=== PATIENT | female | born 1970 | race Caucasian/White ===

== ENCOUNTER 2018-06-11 11:11 | Inpatient (IN) | payer BC ==
[2018-06-11 12:10] LABS: Urine Blood 1+ (NEG); Urine Glucose NEGATIVE (NEG); Urine Protein NEGATIVE (NEG); Urine Specific Gravity 1.015 (1.005-1.030)
[2018-06-11 12:18] LABS: Absolute Lymphocytes (CBC) 2.3 K/uL (0.7-4.9); Absolute Monocytes 1.6 K/uL (0.1-1.3); Absolute Neutrophil 11.5 K/uL (1.8-8.0); Basophils % 0.4 % (0-1.3); Eosinophils % 0.8 % (0-4.4); Hematocrit 45.6 % (36.0-45.0); MPV 8.5 fL (7.6-11.3); Monocytes % 10.2 % (3.3-12.3); RBC Red Blood Cell Count 4.93 M/uL (3.86-4.86)
[2018-06-11 12:30] LABS: ALT/SGPT 24 U/L (12-78); AST/SGOT 11 U/L (15-37); Albumin 3.2 g/dL (3.4-5.0); Alkaline Phosphatase 63 U/L (45-117); BUN Blood Urea Nitrogen 9 mg/dL (7-18); Bicarbonate 27 mmol/L (21-32); Bilirubin Direct 0.1 mg/dL (0-0.2); Bilirubin Total 0.5 mg/dL (0.2-1.0); Glucose Level 95 mg/dL (74-106); Lipase 120 U/L (73-393); Potassium 3.8 mmol/L (3.5-5.1); Protein, Total 7.3 g/dL (6.4-8.2); Sodium Level 139 mmol/L (136-145)
[2018-06-11 12:37] LABS: Urine Bacteria <20 /HPF (<20); Urine Culture Reflex Order NOT NEEDED; Urine Mucus 1+ /HPF (NONE SEEN)
[2018-06-11] MEDS ORDERED: NA CHLORIDE 0.9% 1,000 ML ONE (13:06)
[2018-06-11] MEDS ORDERED: KETOROLAC 30 MG/ML INJ ONE (13:06)
--- NOTE | 2018-06-11 13:24 | RAD REPORT ---
EXAM DESCRIPTION: CT - Abdomen Pelvis W Contrast - 06/11/2018 12:37 pm CLINICAL HISTORY: Abdominal pain/left lower quadrant pain COMPARISON: none. TECHNIQUE: Computed axial tomography of the abdomen pelvis was obtained. 100 cc Isovue-300 was admin istered intravenously. Oral contrast was not requested which limits evaluation of bowel. All CT scans are performed using dose optimization technique as appropriate and may include automated exposure control or mA/KV adjustment according to patient size. FINDINGS: Mild fatty liver Spleen, pancreas, adrenal and right kidney appear unremarkable. 2 millimeter nonobstructing left michael l calculus The appendix is normal Diverticula stem from the colon. The wall of portions of descending and proximal sigmoid colon is thi ckened with stranding in the adjacent fat and ill-defined fluid within the left pericolic gutter. An abscess is not seen. Free air is not noted Small amount of ascites. 2 centimeter right ovarian cyst with a smaller right ovarian follicle. . IMPRESSION: These findings likely indicate moderate diverticulitis involving the descending and sigm oid colon.
[2018-06-11] MEDS ORDERED: CIPROFLOXACIN 400mg IV 400 MG/200 ML BAG IV ONE (13:49)
[2018-06-11] MEDS ORDERED: METRONIDAZOLE 500mg IVPB 500 MG/100 ML BAG IV ONE (13:50)
--- NOTE | 2018-06-11 13:56 | EDPHYS ---
Physician Documentation [facility] Name: Lorie Bonner Age: 47 yrs Sex: Female : 1970 Arrival Date: 06/11/2018 Time: 11:17 Bed 5 Private MD: ED Physician Shahram Martinez HPI: 06/11 12:00 This 47 yrs old Female presents to ER via Ambulatory with complaints of pm1 Pelvic Pain, Flank Pain. 12:00 The patient presents with abdominal pain in the left lower quadrant. pm1 12:00 Onset: The symptoms/episode began/occurred last night. The symptoms do not radiate. pm1 Associated signs and symptoms: Pertinent positives: Left flank pain, Pertinent negatives: blood in stools, chest pain, constipation, diarrhea, dysuria, fever, headache, nausea, shortness of breath, vomiting. The symptoms are described as achy. Modifying factors: The symptoms are alleviated by nothing, the symptoms are aggravated by nothing. Severity of pain: in the emergency department the pain is actually worse. The patient has not experienced similar symptoms in the past. 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 - Social history:: Smoking status: Patient/guardian denies using tobacco, Patient/guardian denies using alcohol. - Ebola Screening: : Patient negative for fever greater than or equal to 101.5 degrees Fahrenheit, and additional compatible Ebola Virus Disease symptoms Patient denies exposure to infectious person Patient denies travel to an Ebola-affected area in the 21 days before illness onset. ROS: 12:00 Constitutional: Negative for fever, chills, and weight loss, Eyes: Negative for injury, pm1 pain, redness, and discharge, ENT: Negative for injury, pain, and discharge, Neck: Negative for injury, pain, and swelling, Cardiovascular: Negative for chest pain, palpitations, and edema, Respiratory: Negative for shortness of breath, cough, wheezing, and pleuritic chest pain. 12:00 Back: Negative for injury and pain, : Negative for injury, bleeding, discharge, and swelling, MS/Extremity: Negative for injury and deformity, Skin: Negative for injury, rash, and discoloration, Neuro: Negative for headache, weakness, numbness, tingling, and seizure. 12:00 Abdomen/GI: Positive for abdominal pain, Negative for nausea, vomiting, and diarrhea. Exam: 12:00 Constitutional: This is a well developed, well nourished patient who is awake, alert, pm1 and in no acute distress. Head/Face: Normocephalic, atraumatic. Eyes: Pupils equal round and reactive to light, extra-ocular motions intact. Lids and lashes normal. Conjunctiva and sclera are non-icteric and not injected. Cornea within normal limits. Periorbital areas with no swelling, redness, or edema. ENT: Nares patent. No nasal discharge, no septal abnormalities noted. Tympanic membranes are normal and external auditory canals are clear. Oropharynx with no redness, swelling, or masses, exudates, or evidence of obstruction, uvula midline. Mucous membranes moist. Neck: Trachea midline, no thyromegaly or masses palpated, and no cervical lymphadenopathy. Supple, full range of motion without nuchal rigidity, or vertebral point tenderness. No Meningismus. Chest/axilla: Normal chest wall appearance and motion. Nontender with no deformity. No lesions are appreciated. Cardiovascular: Regular rate and rhythm with a normal S1 and S2. No gallops, murmurs, or rubs. Normal PMI, no JVD. No pulse deficits. Respiratory: Lungs have equal breath sounds bilaterally, clear to auscultation and percussion. No rales, rhonchi or wheezes noted. No increased work of breathing, no retractions or nasal flaring. 12:00 Back: No spinal tenderness. No costovertebral tenderness. Full range of motion. Skin: Warm, dry with normal turgor. Normal color with no rashes, no lesions, and no evidence of cellulitis. MS/ Extremity: Pulses equal, no cyanosis. Neurovascular intact. Full, normal range of motion. 12:00 Abdomen/GI: Inspection: abdomen appears normal, Bowel sounds: normal, Palpation: soft, mild abdominal tenderness, in the left lower quadrant, mass, is not appreciated, rebound tenderness, is not appreciated. 12:00 Neuro: Orientation: is normal, Motor: is normal, moves all fours. Vital Signs: 11:32 BP 156 / 98; Pulse 95; Resp 18; Temp 98.6(O); Pulse Ox 100% on R/A; Weight 99.34 kg; hj Height 5 ft. 6 in. (167.64 cm); Pain 5/10; 13:30 BP 155 / 90; Pulse 90; Resp 18; Pulse Ox 100% on R/A; hj 14:57 BP 148 / 89; Pulse 89; Resp 18; Pulse Ox 100% on R/A; hj 11:32 Body Mass Index 35.35 (99.34 kg, 167.64 cm) hj MDM: 11:20 Patient medically screened. pm1 13:39 Data reviewed: vital signs. Data interpreted: Pulse oximetry: on room air is 100 %. pm1 Interpretation: normal. Counseling: I had a detailed discussion with the patient and/or guardian regarding: the historical points, exam findings, and any diagnostic results supporting the discharge/admit diagnosis, lab results, radiology results, the need for further work-up and treatment in the hospital. 13:39 Physician consultation: Chin Perez MD was called at 13:39, was contacted at 13:39, pm1 regarding admission, patient's condition, and will see patient He will consult with GI or general surgery if needed. 06/11 11:48 Order name: Urine Dipstick--Ancillary (enter results); Complete Time: 12:21 ag 06/11 11:49 Order name: Basic Metabolic Panel pm1 06/11 11:49 Order name: CBC with Diff pm1 06/11 11:49 Order name: Creatinine for Radiology; Complete Time: 12:39 pm1 06/11 11:49 Order name: Hepatic Function; Complete Time: 12:39 pm1 06/11 11:49 Order name: Lipase; Complete Time: 12:39 pm1 06/11 11:49 Order name: CT Abd/Pelvis - W/Contrast: IV contrast only; Complete Time: 13:28 pm1 06/11 11:49 Order name: Urine Microscopic Only; Complete Time: 12:39 pm1 06/11 11:49 Order name: Basic Metabolic Panel; Complete Time: 12:39 EDMS 06/11 11:49 Order name: CBC with Automated Diff; Complete Time: 12:22 EDMS 06/11 11:49 Order name: IV Saline Lock; Complete Time: 12:03 pm1 06/11 11:49 Order name: Labs collected and sent; Complete Time: 12:03 pm1 Administered Medications: 12:45 Drug: TORadol 30 mg Route: IVP; Site: right antecubital; hj 13:34 Follow up: Response: No adverse reaction; Pain is decreased hj 12:46 Drug: NS 0.9% 1000 ml Route: IV; Rate: 1000 ml; Site: right antecubital; hj 14:10 Follow up: IV Status: Completed infusion hj 13:37 Drug: Flagyl 500 mg Volume: 100 ml; Route: IVPB; Rate: 200 ml/hr; Infused Over: 30 hj mins; Site: right antecubital; 14:11 Follow up: IV Status: Completed infusion hj 14:09 Drug: Cipro 400 mg Volume: 200 ml; Route: IVPB; Infused Over: 60 mins; Site: right hj antecubital; 14:11 Follow up: IV Status: Infusion continued hj Disposition: 06/11/18 13:56 Hospitalization ordered by Chin Perez for Inpatient Admission. Preliminary diagnosis is Diverticulitis of large intestine without perforation or abscess without bleeding. - Bed requested for Telemetry/MedSurg (Inpatient). - Status is Inpatient Admission. hj - Condition is Stable. - Problem is new. - Symptoms have improved. UTI on Admission? No Addendum: 06/15/2018 07:54 Co-signature as Attending Physician, Shahram Martinez MD I agree with the assessment and c thomson plan of care. Signatures: Dispatcher [employer] EDUT Shahram Martinez MD MD cha Gallardo, Ana ag Joaquin, Henry, RN RN Iftikhar Caballero NP SPORTS INTERN pm1 Corrections: (The following items were deleted from the chart) 06/11 14:32 13:56 Hospitalization Ordered by Chin Perez MD for Inpatient Admission. Preliminary ag diagnosis is Diverticulitis of large intestine without perforation or abscess without bleeding. Bed requested for Telemetry/MedSurg (Inpatient). Status is Inpatient Admission. Condition is Stable. Problem is new. Symptoms have improved. UTI on Admission? No. pm1 15:53 14:32 06/11/2018 13:56 Hospitalization Ordered by Chin Perez MD for Inpatient hj Admission. Preliminary diagnosis is Diverticulitis of large intestine without perforation or abscess without bleeding. Bed requested for Telemetry/MedSurg (Inpatient). Status is Inpatient Admission. Condition is Stable. Problem is new. Symptoms have improved. UTI on Admission? No. ag
--- NOTE | 2018-06-11 13:56 | ER ---
Nurse's Notes [facility] Name: Lorie Bonner Age: 47 yrs Sex: Female : 1970 Arrival Date: 06/11/2018 Time: 11:17 Bed 5 Private MD: Diagnosis: Diverticulitis of large intestine without perforation or abscess without bleeding Presentation: 06/11 11:28 Presenting complaint: Patient states: last night around 9:30, i felt sudden pain on my hj L lower abd near the groin area that moves to the L flank area; denies N/V; denies fever, reports chills;. Transition of care: patient was not received from another setting of care. Onset of symptoms was June 11, 2018. Risk Assessment: Do you want to hurt yourself or someone else? Patient reports no desire to harm self or others. Initial Sepsis Screen: Does the patient meet any 2 criteria? Yes Does the patient have a suspected source of infection? Yes: Dysuria/Frequency/Urgency/UTI. Care prior to arrival: None. 11:28 Method Of Arrival: Ambulatory 11:28 Acuity: JARRETT 3 hj Triage Assessment: 11:31 General: Appears in no apparent distress. uncomfortable, Behavior is calm, cooperative, hj appropriate for age. Pain: Complains of pain in abdomen, L flank. 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 - Social history:: Smoking status: Patient/guardian denies using tobacco, Patient/guardian denies using alcohol. - Ebola Screening: : Patient negative for fever greater than or equal to 101.5 degrees Fahrenheit, and additional compatible Ebola Virus Disease symptoms Patient denies exposure to infectious person Patient denies travel to an Ebola-affected area in the 21 days before illness onset. Screenin:31 Abuse screen: Denies threats or abuse. Denies injuries from another. Nutritional hj screening: No deficits noted. Tuberculosis screening: No symptoms or risk factors identified. Fall Risk None identified. Assessment: 11:34 General: Appears in no apparent distress. uncomfortable, Behavior is calm, cooperative, hj appropriate for age. Pain: Complains of pain in abdomen. Neuro: Level of Consciousness is awake, alert, obeys commands, Oriented to person, place, time, situation, Appropriate for age. Cardiovascular: Denies chest pain, Capillary refill < 3 seconds Patient's skin is warm and dry. Respiratory: Airway is patent Respiratory effort is even, unlabored, Respiratory pattern is regular, symmetrical. GI: Reports lower abdominal pain. : No signs and/or symptoms were reported regarding the genitourinary system. EENT: No signs and/or symptoms were reported regarding the EENT system. Derm: No signs and/or symptoms reported regarding the dermatologic system. Musculoskeletal: No signs and/or symptoms reported regarding the musculoskeletal system. 12:30 Reassessment: Patient and/or family updated on plan of care and expected duration. Pain hj level reassessed. Patient is alert, oriented x 3, equal unlabored respirations, skin warm/dry/pink. awaiting results and POC;. 13:30 Reassessment: Patient and/or family updated on plan of care and expected duration. Pain hj level reassessed. Patient is alert, oriented x 3, equal unlabored respirations, skin warm/dry/pink. Patient states feeling better. Patient states symptoms have improved. 14:57 Reassessment: for admit room 215; floor nurse requests to call back in 10 mins for hj report;. Vital Signs: 11:32 BP 156 / 98; Pulse 95; Resp 18; Temp 98.6(O); Pulse Ox 100% on R/A; Weight 99.34 kg; hj Height 5 ft. 6 in. (167.64 cm); Pain 5/10; 13:30 BP 155 / 90; Pulse 90; Resp 18; Pulse Ox 100% on R/A; hj 14:57 BP 148 / 89; Pulse 89; Resp 18; Pulse Ox 100% on R/A; hj 11:32 Body Mass Index 35.35 (99.34 kg, 167.64 cm) ED Course: 11:17 Patient arrived in ED. mr 11:20 Iftikhar Patel NP is PHCP. pm1 11:20 Shahram Martinez MD is Attending Physician. pm1 11:21 Ruben Burns RN is Primary Nurse. hj 11:30 Triage completed. hj 11:31 Arm band placed on right wrist. hj 11:32 Patient has correct armband on for positive identification. Placed in gown. Bed in low hj position. Call light in reach. Side rails up X 1. 11:33 Urine collected: clean catch specimen, clear. hj 11:45 Initial lab(s) drawn, by me, sent to lab. Inserted saline lock: 20 gauge in right hj antecubital area, using aseptic technique. Blood collected. 12:36 CT completed. Patient moved to CT via wheelchair. Patient moved back from CT. kw1 12:37 CT Abd/Pelvis - W/Contrast: IV contrast only In Process Unspecified. EDMS 13:41 Chin Perez MD is Hospitalizing Provider. pm1 15:51 No provider procedures requiring assistance completed. Patient admitted, IV remains in hj place. intact. Administered Medications: 12:45 Drug: TORadol 30 mg Route: IVP; Site: right antecubital; hj 13:34 Follow up: Response: No adverse reaction; Pain is decreased hj 12:46 Drug: NS 0.9% 1000 ml Route: IV; Rate: 1000 ml; Site: right antecubital; hj 14:10 Follow up: IV Status: Completed infusion hj 13:37 Drug: Flagyl 500 mg Volume: 100 ml; Route: IVPB; Rate: 200 ml/hr; Infused Over: 30 hj mins; Site: right antecubital; 14:11 Follow up: IV Status: Completed infusion hj 14:09 Drug: Cipro 400 mg Volume: 200 ml; Route: IVPB; Infused Over: 60 mins; Site: right hj antecubital; 14:11 Follow up: IV Status: Infusion continued hj Outcome: 13:56 Decision to Hospitalize by Provider. pm1 15:52 Admitted to Med/surg accompanied by tech, via wheelchair, room 215, with chart, Report hj called to VALERIE Jones 15:52 Condition: stable 15:52 Instructed on the need for admit, Demonstrated understanding of instructions. 15:53 Patient left the ED. hj Signatures: Dispatcher [employer] EDIN Dafne Bradley Henry, RN RN hj Iftikhar Patel, BEVEL OPERATOR BEVEL OPERATOR pm1 Sakina aCmara kw1
[2018-06-11] MEDS: D5 0.45 NS 1,000 ML IV SCH ×2 (15:19→21:26)
[2018-06-11] MEDS: METRONIDAZOLE 500mg IVPB 500 MG/100 ML BAG IV SCH (16:12)
[2018-06-11] MEDS ORDERED: INFLUENZA VACCINE (for 3y+) 0.5 ML DOSE IMVAC ONE (17:00)
[2018-06-11] MEDS: MORPHINE 4 MG/ML SYR IV PRN (18:23)
[2018-06-11] MEDS: ONDANSETRON 4 MG/2 ML VIAL IV PRN (18:24)
[2018-06-11] MEDS: CIPROFLOXACIN 400mg IV 400 MG/200 ML BAG IV SCH (21:25)
[2018-06-12] MEDS: ONDANSETRON 4 MG/2 ML VIAL IV PRN ×6 (00:14→22:55)
[2018-06-12] MEDS: MORPHINE 4 MG/ML SYR IV PRN ×6 (00:16→22:56)
[2018-06-12] MEDS: METRONIDAZOLE 500mg IVPB 500 MG/100 ML BAG IV SCH ×3 (00:21→16:51)
[2018-06-12 05:14] LABS: Absolute Lymphocytes (CBC) 2.1 K/uL (0.7-4.9); Absolute Monocytes 1.8 K/uL (0.1-1.3); Absolute Neutrophil 12.2 K/uL (1.8-8.0); Basophils % 0.4 % (0-1.3); Eosinophils % 0.6 % (0-4.4); Hematocrit 40.5 % (36.0-45.0); Lymphocytes % 12.9 % (15.3-44.8); MPV 7.8 fL (7.6-11.3); Monocytes % 11.3 % (3.3-12.3); RBC Red Blood Cell Count 4.33 M/uL (3.86-4.86)
[2018-06-12 05:22] LABS: ALT/SGPT 16 U/L (12-78); AST/SGOT 6 U/L (15-37); Albumin 2.5 g/dL (3.4-5.0); Alkaline Phosphatase 48 U/L (45-117); BUN Blood Urea Nitrogen 5 mg/dL (7-18); Bicarbonate 26 mmol/L (21-32); Bilirubin Direct 0.2 mg/dL (0-0.2); Bilirubin Total 0.5 mg/dL (0.2-1.0); Glucose Level 125 mg/dL (74-106); Lipase 91 U/L (73-393); Potassium 3.3 mmol/L (3.5-5.1); Sodium Level 139 mmol/L (136-145)
[2018-06-12] MEDS: CIPROFLOXACIN 400mg IV 400 MG/200 ML BAG IV SCH ×2 (09:48→21:21)
[2018-06-12] MEDS: D5 0.45 NS 1,000 ML IV SCH ×4 (09:52→23:19)
[2018-06-12] MEDS: ACETAMINOPHEN 500 MG TAB PO PRN (11:57)
--- NOTE | 2018-06-12 17:46 | HP ---
Date of Admission: 06/11/2018 Entrance Complaint: Abdominal pain. History Of Present Illness: The patient stated she noticed some lower, mid, and left abdominal pain 24 to 36 hours before presenting to the emergency room, became increasingly more severe, associated w ith nausea. No bowel movement change. However, the pain became severe enough. She felt something n ot right. In fact at that time CT scan did reveal moderate significant diverticulitis. She was admi tted. Patient states she has not had any GI problems in the past. A number of years ago she had some pelvic and lower abdominal pain prior to the diagnosis of endometriosis. 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 Since then, she has been relatively free o f GI problems. However, she does state she has a fair amount of alcohol on a regular basis. No marilee anh. Some caffeine. A few days prior to this she had an excessive amount associated with some unus ual foods for her. She also has been on a low carb diet. Some weight loss prior to this onset. Past History: As above. Endometriosis. Medications: On no medications for GI problems. Social History: As above. Family History: Noncontributory. Physical Examination: General: Patient is a moderately obese middle-aged female, in mild distress with stable vital signs. Head/Neck: Normocephalic. Pupils are equal and reactive to light and accommodation. Fundi negative . Trachea midline. Thyroid not palpable. ENT: Negative. Chest: Clear to P and A. Cardiovascular: PMI in midclavicular line. Heart sounds normal. Peripheral pulses present and equa l bilaterally. Abdomen: Tenderness in the left lower abdomen. Borderline rebound. No organomegaly. Bowel sounds present. Extremities: Slightly dehydrated. Good tone and movement bilaterally. Reflexes physiologic. Rectal/pelvic: Deferred. Impression: Acute diverticulitis. Plan: Patient will be admitted and placed on IV fluids, IV antibiotics, Flagyl, and Cipro. Dependin g on her progress, further testing and antibiotics may be added to the regimen. Her white count was elevated. Her white blood count was within normal limits. This will be followed as well. HR/MODL Voice ID: [id number]
--- NOTE | 2018-06-12 17:52 | PN ---
Date of Progress Note: 06/12/2018 The patient states she feels somewhat better. Still has abdominal pain. Asking for analgesics on a regular basis. Some nausea associated with morphine, otherwise not. Has asked for some ice chips. She states this is not discomfort is concerned. Physical exam still reveals the left lowe r quadrant tenderness. CAT scan did not reveal any abscess or free fluid; however, we will repeat th e KUB in the morning. Her vital signs are stable. Her white count is still elevated. HR/MODL Voice ID: [id number] Report ID: [id number]
[2018-06-12] MEDS: ENOXAPARIN 30 MG/0.3 ML SQ SCH (18:16)
[2018-06-12] MEDS: KCL 20 MEQ/100 mL IVPB 20 MEQ/100 ML BAG IV SCH ×2 (18:17→21:21)
[2018-06-13] MEDS: METRONIDAZOLE 500mg IVPB 500 MG/100 ML BAG IV SCH ×3 (01:36→17:07)
[2018-06-13] MEDS: MORPHINE 4 MG/ML SYR IV PRN ×2 (05:26→10:00)
[2018-06-13] MEDS: ONDANSETRON 4 MG/2 ML VIAL IV PRN ×2 (05:26→10:00)
[2018-06-13 06:01] LABS: Absolute Lymphocytes (CBC) 2.1 K/uL (0.7-4.9); Absolute Monocytes 1.3 K/uL (0.1-1.3); Absolute Neutrophil 8.7 K/uL (1.8-8.0); Basophils % 0.7 % (0-1.3); Eosinophils % 1.9 % (0-4.4); Hematocrit 38.1 % (36.0-45.0); Lymphocytes % 16.7 % (15.3-44.8); MPV 8.1 fL (7.6-11.3); Monocytes % 10.3 % (3.3-12.3)
[2018-06-13 06:13] LABS: BUN Blood Urea Nitrogen 3 mg/dL (7-18); Bicarbonate 26 mmol/L (21-32); Glucose Level 108 mg/dL (74-106); Magnesium 2.2 mg/dL (1.8-2.4); Potassium 3.6 mmol/L (3.5-5.1); Sodium Level 140 mmol/L (136-145)
[2018-06-13] MEDS: D5 0.45 NS 1,000 ML IV SCH ×3 (06:27→20:54)
[2018-06-13] MEDS ORDERED: KCL 20 MEQ/100 mL IVPB 20 MEQ/100 ML BAG IV SCH (08:00)
[2018-06-13] MEDS: CIPROFLOXACIN 400mg IV 400 MG/200 ML BAG IV SCH ×2 (08:53→20:54)
[2018-06-13] MEDS: ACETAMINOPHEN 500 MG TAB PO PRN (08:56)
--- NOTE | 2018-06-13 08:57 | RAD REPORT ---
EXAM DESCRIPTION: RAD - Abdomen 1 View (KUB) - 06/13/2018 6:48 am CLINICAL HISTORY: Abdomen pain. FINDINGS: Air is present within the mildly dilated small bowel within the left abdomen probably seco ndary to an ileus. Remainder the bowel gas pattern is unremarkable. No abnormal calcifications seen
[2018-06-13] MEDS ORDERED: KETOROLAC 30 MG/ML INJ IV PRN (14:59)
[2018-06-13] MEDS: ENOXAPARIN 30 MG/0.3 ML SQ SCH (17:07)
--- NOTE | 2018-06-13 23:27 | PN ---
Date of Progress Note: 06/13/2018 Subjective: The patient feels somewhat better today. This is the first time she states the pain is not as severe. She no longer needs morphine. She was therefore changed to clear liquids and increas ed activity and use of Toradol rather than morphine. Her KUB did show slight ileus. She can tolerat e the fluids. The diet will be advanced again tomorrow. Her white count has also dropped. Objective: Physical exam showed still some rebound tenderness in the left lower quadrant, not as mar ked. HR/MODL Voice ID: [id number] Report ID: [id number]
[2018-06-14] MEDS: METRONIDAZOLE 500mg IVPB 500 MG/100 ML BAG IV SCH ×3 (00:30→17:22)
[2018-06-14 06:03] LABS: Absolute Lymphocytes (CBC) 1.6 K/uL (0.7-4.9); Absolute Monocytes 0.9 K/uL (0.1-1.3); Absolute Neutrophil 6.1 K/uL (1.8-8.0); Basophils % 0.7 % (0-1.3); Eosinophils % 2.8 % (0-4.4); Hematocrit 40.8 % (36.0-45.0); Lymphocytes % 17.8 % (15.3-44.8); MPV 7.8 fL (7.6-11.3); Monocytes % 9.9 % (3.3-12.3); RBC Red Blood Cell Count 4.33 M/uL (3.86-4.86)
[2018-06-14 06:14] LABS: BUN Blood Urea Nitrogen 4 mg/dL (7-18); Bicarbonate 27 mmol/L (21-32); Glucose Level 105 mg/dL (74-106); Potassium 3.7 mmol/L (3.5-5.1); Sodium Level 142 mmol/L (136-145)
[2018-06-14] MEDS ORDERED: POTASSIUM 25 MEQ EFFERV TAB PO ONE (06:43)
[2018-06-14] MEDS: D5 0.45 NS 1,000 ML IV SCH ×2 (07:17→15:24)
[2018-06-14] MEDS: CIPROFLOXACIN 400mg IV 400 MG/200 ML BAG IV SCH ×2 (09:17→20:25)
[2018-06-14] MEDS: ENOXAPARIN 30 MG/0.3 ML SQ SCH (17:22)
--- NOTE | 2018-06-14 20:43 | PN ---
Date of Progress Note: 06/14/2018 The patient continues to improve. Her white blood count is normal. Abdomen shows less tenderness, b ut still minimal rebound on the left lower quadrant. Afebrile. Potassium back to normal. We will a dvance her diet. Repeat the KUB. If no ileus and tolerates her advance diet, she could possibly be discharged tomorrow. HR/MODL Voice ID: [id number] Report ID: [id number]
[2018-06-14 21:21] LABS: Urine Appearance CLEAR; Urine Bilirubin NEGATIVE (NEG); Urine Blood NEGATIVE (NEG); Urine Color YELLOW; Urine Glucose NEGATIVE (NEG); Urine Protein NEGATIVE (NEG); Urine Specific Gravity <=1.005 (1.005-1.030); Urine pH 6.5 (5.0-7.0)
[2018-06-14 21:24] LABS: Urine Microscopic Reflex NO UMIC
[2018-06-15] MEDS: D5 0.45 NS 1,000 ML IV SCH ×3 (00:52→15:19)
[2018-06-15] MEDS: METRONIDAZOLE 500mg IVPB 500 MG/100 ML BAG IV SCH ×3 (00:52→16:12)
[2018-06-15 05:52] LABS: Absolute Lymphocytes (CBC) 1.8 K/uL (0.7-4.9); Absolute Monocytes 0.8 K/uL (0.1-1.3); Absolute Neutrophil 4.5 K/uL (1.8-8.0); Hematocrit 38.3 % (36.0-45.0); Lymphocytes % 24.4 % (15.3-44.8); Monocytes % 10.7 % (3.3-12.3); RBC Red Blood Cell Count 4.14 M/uL (3.86-4.86)
[2018-06-15 06:08] LABS: BUN Blood Urea Nitrogen 3 mg/dL (7-18); Bicarbonate 26 mmol/L (21-32); Glucose Level 97 mg/dL (74-106); Potassium 3.4 mmol/L (3.5-5.1); Sodium Level 142 mmol/L (136-145)
--- NOTE | 2018-06-15 08:47 | RAD REPORT ---
EXAM DESCRIPTION: RAD - Abdomen 1 View (KUB) - 06/15/2018 8:25 am CLINICAL HISTORY: Abdominal pain, ileus, undergoing treatment for diverticulitis COMPARISON: KUB June 13, CT study June 11 FINDINGS: Bowel gas pattern is non-specific. No obstruction, free air or pneumatosis. Small bowel g as pattern has substantially improved since June 13. No significant bony findings IMPRESSION: Prominent small bowel gas pattern or ileus has substantially improved since June 13. No obstruction, free air or worsening finding.
[2018-06-15] MEDS ORDERED: POTASSIUM 25 MEQ EFFERV TAB PO ONE (09:00)
[2018-06-15] MEDS: CIPROFLOXACIN 400mg IV 400 MG/200 ML BAG IV SCH (09:57)
--- NOTE | 2018-06-15 21:11 | PN ---
Date of Progress Note: 06/15/2018 The patient continues to improve. Minimal tenderness on deep palpation. Tolerated the soft diet. W barak count remains normal. Potassium is a little low. She can be discharged on dietary control. Ci pro 500 mg twice a day and Flagyl 500 mg 3 times a day for 10 days and then follow up in the office. HR/MODL Voice ID: [id number] Report ID: [id number]
== END 2018-06-15 17:19 | disposition home or self-care (01) | DRG 392 ==
LOC: ER 11:11 → ERHOLD 14:01 → 2ND 15:15
PROVIDERS: ADMIT Family Medicine; ATTEND Family Medicine
DX: K57.92 Diverticulitis of intestine, part unspecified, without perforation or abscess without bleeding (principal)
CPT/HCPCS: 36415; 74018; 74177; 80048; 80076; 81003; 81015; 82274; 83690; 83735; 84132; 85025; 96361; 96365; 96375; 99285; G0008; J0744; J1650; J2405; J7030; Q9967

== ENCOUNTER 2019-05-01 07:29 | Day surgery (SDC) | payer BC ==
[2019-05-01] MEDS ORDERED: Ringers Lactate 1,000 ML IV ONE (07:32)
[2019-05-01] MEDS ORDERED: LIDOCAINE 1% MPF 5 ML VIAL ONE (08:29)
[2019-05-01] MEDS ORDERED: PROPOFOL 200 MG/20 ML VIAL IV ONE (08:29)
[2019-05-01] MEDS ORDERED: GLYCOPYRROLATE 0.2 MG/ML SYR ONE (08:29)
[2019-05-01 11:04] VITALS: BP 136/81; TEMP 97.7; O2SAT 99
== END 2019-05-01 09:55 | disposition home or self-care (01) ==
LOC: OR 07:29
PROVIDERS: ATTEND Surgery
PROC: 0DBN8ZX Excision of Sigmoid Colon, Via Natural or Artificial Opening Endoscopic, Diagnostic (ICD-10-PCS; 2019-05-01)
PROC: 0DBP8ZX Excision of Rectum, Via Natural or Artificial Opening Endoscopic, Diagnostic (ICD-10-PCS; 2019-05-01)
PROC: 0DBH8ZX Excision of Cecum, Via Natural or Artificial Opening Endoscopic, Diagnostic (ICD-10-PCS; principal; 2019-05-01 08:30)
DX: D12.0 Benign neoplasm of cecum (principal); K63.5 Polyp of colon; K62.1 Rectal polyp; K57.30 Diverticulosis of large intestine without perforation or abscess without bleeding; K64.8 Other hemorrhoids; Z83.71 Family history of colonic polyps; Z88.6 Allergy status to analgesic agent
CPT/HCPCS: 88305; 45385; J2704; J7120

== ENCOUNTER 2020-08-02 10:55 | Emergency (ER) | payer BC ==
[2020-08-02 11:42] LABS: Absolute Lymphocytes (CBC) 2.5 K/uL (0.7-4.9); Basophils % 0.6 % (0-1.3); Hematocrit 41.4 % (36.0-45.0); Lymphocytes % 22.3 % (15.3-44.8); MPV 7.8 fL (7.6-11.3)
[2020-08-02 11:49] LABS: ALT/SGPT 20 U/L (12-78); AST/SGOT 9 U/L (15-37); Albumin 3.5 g/dL (3.4-5.0); Alkaline Phosphatase 72 U/L (45-117); BUN Blood Urea Nitrogen 13 mg/dL (7-18); Bicarbonate 25 mmol/L (21-32); Bilirubin Direct 0.2 mg/dL (0-0.2); Bilirubin Total 0.6 mg/dL (0.2-1.0); Glucose Level 98 mg/dL (74-106); Lipase 135 U/L (73-393); Potassium 3.8 mmol/L (3.5-5.1); Protein, Total 7.5 g/dL (6.4-8.2); Sodium Level 140 mmol/L (136-145)
[2020-08-02] MEDS ORDERED: ONDANSETRON 4 MG/2 ML VIAL ONE ×2 (11:53→13:02)
[2020-08-02] MEDS ORDERED: NA CHLORIDE 0.9% 1,000 ML ONE (11:53)
[2020-08-02] MEDS ORDERED: MORPHINE 4 MG/ML SYR ONE ×2 (11:53→13:02)
--- NOTE | 2020-08-02 12:22 | RAD REPORT ---
EXAM DESCRIPTION: CT - Abdomen Pelvis W Contrast - 08/02/2020 12:07 pm CLINICAL HISTORY: ABD PAIN COMPARISON: Abdomen Pelvis W Contrast dated 06/11/2018 TECHNIQUE: Biphasic, helical CT imaging of the abdomen and pelvis was performed following 100 ml non -ionic IV contrast. No oral contrast given. All CT scans are performed using dose optimization technique as appropriate and may include automated exposure control or mA/KV adjustment according to patient size. FINDINGS: A small 5 mm nodule in the posterior lower right lung field has not changed since June 1999 19. This 2 year interval would indicate a benign etiology. No other significant lung base findin g. No pericardial thickening or effusion. The liver, spleen, and pancreas show no suspicious findings. Gallbladder and biliary tree are also wi thout suspicious finding. Symmetric renal function is seen with no hydronephrosis or suspicious renal mass. No pyelonephritis o r acute parenchymal process. No bladder abnormalities. No adrenal abnormalities. Uterus is absent. Le ft ovary is not identified and may be atrophic or surgically absent as well. Right ovary is identifie d and similar or less prominent than seen June 2018. No gastric dilatation or gastric wall thickening. Gastric wall assessment is limited due to the absen ce of intraluminal content. No acute small bowel finding. There is no appendicitis. Moderate stool vo lume is present in the colon from cecum to the left side of the transverse colon. There is an approxi mately 10-12 centimeter long length of left-sided colon that involves the splenic flexure and portion s of the left-side transverse colon and proximal portion of the descending colon. At this region ther e is circumferential wall thickening with a small amount of stranding in the adjacent fat. Patient thomson s diverticulosis in this region as well as elsewhere in the left side colon. Most common etiology would be diverticulitis. Nonspecific colitis is possible. Colon malignancy canno t be excluded and colonoscopy following medical management would be recommended. Patient has no pathologic lymph node pattern or other findings that would indicate diffuse neoplastic process. No free air or pneumatosis. No other site of inflammatory stranding. No hernia, mass or b ulky lymphadenopathy. Disc and bone degenerative changes are present. IMPRESSION: Approximately 10-12 centimeter long segment at the splenic flexure of the colon showing wall thickening, edema and stranding in the adjacent fat. Acute diverticulitis would be the most likely etiology. This could be a nonspecific colitis. Colon ma lignancy cannot be excluded but is considered lesser in likelihood. Follow-up colonoscopy after medic al management can be performed as warranted.
--- NOTE | 2020-08-02 12:41 | EDPHYS ---
Physician Documentation [facility] Name: Lorie Bonner Age: 49 yrs Sex: Female : 1970 Arrival Date: 08/02/2020 Time: 10:59 Bed 7 Private MD: ED Physician Ronnie Bejarano HPI: 08/02 13:36 This 49 yrs old Female presents to ER via Ambulatory with complaints of kb Abdominal Pain. 13:36 The patient presents with abdominal pain in the left upper quadrant. Onset: The kb symptoms/episode began/occurred yesterday. The symptoms do not radiate. Associated signs and symptoms: Pertinent positives: nausea. The symptoms are described as constant. Modifying factors: The symptoms are alleviated by nothing, the symptoms are aggravated by movement, pressure. Severity of pain: At its worst the pain was moderate in the emergency department the pain is unchanged. The patient has not experienced similar symptoms in the past. The patient has not recently seen a physician. 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 - Social history:: Smoking status: Patient reports the use of cigarette tobacco products, denies chronic smoking, but will smoke occasionally. ROS: 13:35 Constitutional: Negative for fever, chills, and weight loss, Cardiovascular: Negative kb for chest pain, palpitations, and edema, Respiratory: Negative for shortness of breath, cough, wheezing, and pleuritic chest pain, Back: Negative for injury and pain, MS/Extremity: Negative for injury and deformity, Skin: Negative for injury, rash, and discoloration, Neuro: Negative for headache, weakness, numbness, tingling, and seizure. 13:35 Abdomen/GI: Positive for abdominal pain, nausea. Exam: 13:33 Constitutional: This is a well developed, well nourished patient who is awake, alert, kb and in no acute distress. Head/Face: Normocephalic, atraumatic. Chest/axilla: Normal chest wall appearance and motion. Nontender with no deformity. No lesions are appreciated. Cardiovascular: Regular rate and rhythm with a normal S1 and S2. No gallops, murmurs, or rubs. Normal PMI, no JVD. No pulse deficits. Respiratory: Lungs have equal breath sounds bilaterally, clear to auscultation and percussion. No rales, rhonchi or wheezes noted. No increased work of breathing, no retractions or nasal flaring. Skin: Warm, dry with normal turgor. Normal color with no rashes, no lesions, and no evidence of cellulitis. MS/ Extremity: Pulses equal, no cyanosis. Neurovascular intact. Full, normal range of motion. Neuro: Awake and alert, GCS 15, oriented to person, place, time, and situation. Cranial nerves II-XII grossly intact. Motor strength 5/5 in all extremities. Sensory grossly intact. Cerebellar exam normal. Normal gait. 13:33 Abdomen/GI: Inspection: abdomen appears normal, Bowel sounds: normal, in all quadrants, Palpation: soft, in all quadrants, moderate abdominal tenderness, in the left upper quadrant. Vital Signs: 11:03 BP 140 / 96; Pulse 76; Resp 17; Temp 98.3; Pulse Ox 98% ; Weight 104.33 kg; Height 5 ll1 ft. 6 in. (167.64 cm); Pain 7/10; 11:51 BP 115 / 82; Pulse 78; Resp 16 S; Pulse Ox 100% on R/A; jd3 12:38 BP 127 / 83; Pulse 77; Resp 18 S; Pulse Ox 98% on R/A; jd3 13:13 BP 130 / 83; Pulse 76; Resp 16 S; Pulse Ox 97% on R/A; jd3 11:03 Body Mass Index 37.12 (104.33 kg, 167.64 cm) ll1 MDM: 11:08 Patient medically screened. kb 13:32 Data reviewed: vital signs, nurses notes. Data interpreted: Pulse oximetry: on room air kb is 97 %. Interpretation: normal. Counseling: I had a detailed discussion with the patient and/or guardian regarding: the historical points, exam findings, and any diagnostic results supporting the discharge/admit diagnosis, lab results, radiology results, the need for outpatient follow up, a family practitioner, to return to the emergency department if symptoms worsen or persist or if there are any questions or concerns that arise at home. 13:33 ED course: Pt would like to try outpatient antibiotics and will return for worsening kb symptoms or if unable to tolerate. 08/02 11:08 Order name: Basic Metabolic Panel; Complete Time: 11:55 kb 08/02 11:08 Order name: CBC with Diff; Complete Time: 11:45 kb 08/02 11:08 Order name: Hepatic Function; Complete Time: 11:55 kb 08/02 11:08 Order name: Lipase; Complete Time: 11:55 kb 08/02 11:26 Order name: CT Abd/Pelvis - IV Contrast Only; Complete Time: 12:24 kb 08/02 11:08 Order name: IV Saline Lock; Complete Time: 11:26 kb 08/02 11:08 Order name: Labs collected and sent; Complete Time: :26 kb Administered Medications: 11:42 Drug: NS 0.9% 1000 ml Route: IV; Rate: 1000 ml; Site: left forearm; jd3 12:40 Follow up: Response: No adverse reaction; IV Status: Completed infusion; IV Intake: jd3 1000ml 11:43 Drug: Zofran (Ondansetron) 4 mg Route: IVP; Site: left forearm; jd3 12:40 Follow up: Response: No adverse reaction jd3 11:44 Drug: morphine 4 mg Route: IVP; Site: left forearm; jd3 12:40 Follow up: Response: No adverse reaction; RASS: Alert and Calm (0) jd3 12:51 Drug: Zofran (Ondansetron) 4 mg Route: IVP; Site: left forearm; jd3 13:11 Follow up: Response: No adverse reaction jd3 12:51 Drug: Cipro 500 mg Route: PO; jd3 13:11 Follow up: Response: Medication administered at discharge. jd3 12:51 Drug: Flagyl 500 mg Route: PO; jd3 13:11 Follow up: Response: Medication administered at discharge. jd3 12:52 Drug: morphine 4 mg Route: IVP; Site: left forearm; jd3 13:11 Follow up: Response: No adverse reaction; RASS: Alert and Calm (0) jd3 Disposition: 08/02/20 12:40 Discharged to Home. Impression: Diverticulitis of intestine, part unspecified, without perforation or abscess without bleeding. - Condition is Stable. - Discharge Instructions: Diverticulitis, [id number]. - Prescriptions for Flagyl 500 mg Oral Tablet - take 1 tablet by ORAL route every 8 hours for 10 days; 30 tablet. Zofran 4 mg Oral Tablet - take 1 tablet by ORAL route every 6 hours As needed; 20 tablet. Cipro 500 mg Oral Tablet - take 1 tablet by ORAL route every 12 hours for 10 days; 20 tablet. Tramadol 50 mg Oral Tablet - take 1 tablet by ORAL route every 8 hours as needed; 12 tablet. - Medication Reconciliation Form, Thank You Letter, Antibiotic Education, Prescription Opioid Use, Work release form form. - Follow up: Emergency Department; When: As needed; Reason: Worsening of condition. Follow up: Private Physician; When: 2 - 3 days; Reason: Recheck today's complaints, Continuance of care, Re-evaluation by your physician. Addendum: 08/05/2020 06:00 Co-signature as Attending Physician, Ronnie Bejarano MD I agree with the assessment and k dr plan of care. Signatures: Dispatcher [employer] EDNE Yamel Pena, TEACHER ASST-C TEACHER ASST-CkRonnie Fried MD MD [facility] Red Thomas RN RN jJulia Hartman RN RN ll1 Corrections: (The following items were deleted from the chart) 08/02 13:14 12:40 08/02/2020 12:40 Discharged to Home. Impression: Diverticulitis of intestine, jd3 part unspecified, without perforation or abscess without bleeding. Condition is Stable. Forms are Medication Reconciliation Form, Thank You Letter, Antibiotic Education, Prescription Opioid Use. Follow up: Emergency Department; When: As needed; Reason: Worsening of condition. Follow up: Private Physician; When: 2 - 3 days; Reason: Recheck today's complaints, Continuance of care, Re-evaluation by your physician. kb
--- NOTE | 2020-08-02 12:41 | ER ---
Nurse's Notes [facility] Name: Lorie Bonner Age: 49 yrs Sex: Female : 1970 Arrival Date: 08/02/2020 Time: 10:59 Bed 7 Private MD: Diagnosis: Diverticulitis of intestine, part unspecified, without perforation or abscess without bleeding Presentation: 08/02 11:03 Chief complaint: Patient states: LUQ abd pain for 2 days. Slight nausea. No fever or ll1 urinary symptoms. Coronavirus screen: Client denies travel out of the [place] in the last 14 days. At this time, the client does not indicate any symptoms associated with coronavirus-19. Ebola Screen: Patient denies travel to an Ebola-affected area in the 21 days before illness onset. Initial Sepsis Screen: Does the patient meet any 2 criteria? No. Patient's initial sepsis screen is negative. Does the patient have a suspected source of infection? Yes: Acute abdominal pain. Risk Assessment: Do you want to hurt yourself or someone else? Patient reports no desire to harm self or others. Onset of symptoms was August 01, 2020. 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 - Social history:: Smoking status: Patient reports the use of cigarette tobacco products, denies chronic smoking, but will smoke occasionally. Screenin:15 Abuse screen: Denies threats or abuse. Nutritional screening: No deficits noted. jd3 Tuberculosis screening: No symptoms or risk factors identified. Fall Risk Ambulatory Aid- None/Bed Rest/Nurse Assist (0 pts). Gait- Normal/Bed Rest/Wheelchair (0 pts) Mental Status- Oriented to own ability (0 pts). Total Nicholas Fall Scale indicates No Risk (0-24 pts). Assessment: 11:14 General: Appears in no apparent distress. comfortable, Behavior is calm, cooperative, jd3 appropriate for age. Pain: Complains of pain in left upper quadrant Quality of pain is described as crampy, tender. Neuro: Level of Consciousness is awake, alert, obeys commands, Oriented to person, place, time, situation. Cardiovascular: Denies chest pain, Capillary refill < 3 seconds Patient's skin is warm and dry. Respiratory: Airway is patent Respiratory effort is even, unlabored, Respiratory pattern is regular, symmetrical, Denies cough, shortness of breath. GI: Abdomen is round non-distended, Bowel sounds present X 4 quads. Abd is soft X 4 quads Abdomen is tender to palpation in left upper quadrant Reports upper abdominal pain, nausea, Patient currently denies constipation, diarrhea, vomiting. : No signs and/or symptoms were reported regarding the genitourinary system. EENT: No signs and/or symptoms were reported regarding the EENT system. Derm: Skin is intact, Skin is dry, Skin is normal, Skin temperature is warm. Musculoskeletal: Circulation, motion, and sensation intact. Range of motion: intact in all extremities. 11:50 Reassessment: Patient appears in no apparent distress at this time. No changes from jd3 previously documented assessment. Patient and/or family updated on plan of care and expected duration. Pain level reassessed. Patient is alert, oriented x 3, equal unlabored respirations, skin warm/dry/pink. 12:38 Reassessment: Patient appears in no apparent distress at this time. Patient and/or jd3 family updated on plan of care and expected duration. Pain level reassessed. Patient is alert, oriented x 3, equal unlabored respirations, skin warm/dry/pink. 12:53 Reassessment: Patient appears in no apparent distress at this time. Patient and/or jd3 family updated on plan of care and expected duration. Pain level reassessed. Patient is alert, oriented x 3, equal unlabored respirations, skin warm/dry/pink. Patient states feeling better. 13:11 Reassessment: Patient appears in no apparent distress at this time. Patient and/or jd3 family updated on plan of care and expected duration. Pain level reassessed. Patient is alert, oriented x 3, equal unlabored respirations, skin warm/dry/pink. reported understanding of discharge Patient states feeling better. Vital Signs: 11:03 BP 140 / 96; Pulse 76; Resp 17; Temp 98.3; Pulse Ox 98% ; Weight 104.33 kg; Height 5 ll1 ft. 6 in. (167.64 cm); Pain 7/10; 11:51 BP 115 / 82; Pulse 78; Resp 16 S; Pulse Ox 100% on R/A; jd3 12:38 BP 127 / 83; Pulse 77; Resp 18 S; Pulse Ox 98% on R/A; jd3 13:13 BP 130 / 83; Pulse 76; Resp 16 S; Pulse Ox 97% on R/A; jd3 11:03 Body Mass Index 37.12 (104.33 kg, 167.64 cm) ll1 ED Course: 10:59 Patient arrived in ED. mr 11:01 Yamel Pena, DAVIE is PHCP. kb 11:01 Ronnie Bejarano MD is Attending Physician. kb 11:05 Triage completed. ll1 11:05 Arm band placed on Patient placed in an exam room, on a stretcher. ll1 11:13 Red Thomas RN is Primary Nurse. jd3 11:16 Patient has correct armband on for positive identification. Bed in low position. Call jd3 light in reach. Side rails up X 1. Pulse ox on. NIBP on. 11:26 Inserted saline lock: 20 gauge in left forearm, using aseptic technique. Blood mt collected. 12:07 CT Abd/Pelvis - IV Contrast Only In Process Unspecified. EDMS 13:13 No provider procedures requiring assistance completed. IV discontinued, intact, jd3 bleeding controlled, No redness/swelling at site. Pressure dressing applied. Administered Medications: 11:42 Drug: NS 0.9% 1000 ml Route: IV; Rate: 1000 ml; Site: left forearm; jd3 12:40 Follow up: Response: No adverse reaction; IV Status: Completed infusion; IV Intake: jd3 1000ml 11:43 Drug: Zofran (Ondansetron) 4 mg Route: IVP; Site: left forearm; jd3 12:40 Follow up: Response: No adverse reaction jd3 11:44 Drug: morphine 4 mg Route: IVP; Site: left forearm; jd3 12:40 Follow up: Response: No adverse reaction; RASS: Alert and Calm (0) jd3 12:51 Drug: Zofran (Ondansetron) 4 mg Route: IVP; Site: left forearm; jd3 13:11 Follow up: Response: No adverse reaction jd3 12:51 Drug: Cipro 500 mg Route: PO; jd3 13:11 Follow up: Response: Medication administered at discharge. jd3 12:51 Drug: Flagyl 500 mg Route: PO; jd3 13:11 Follow up: Response: Medication administered at discharge. jd3 12:52 Drug: morphine 4 mg Route: IVP; Site: left forearm; jd3 13:11 Follow up: Response: No adverse reaction; RASS: Alert and Calm (0) jd3 Intake: 12:40 IV: 1000ml; Total: 1000ml. jd3 Outcome: 12:40 Discharge ordered by . jonathan 13:14 Discharged to home via wheelchair, with family. jd3 13:14 Condition: stable 13:14 Discharge instructions given to patient, Instructed on discharge instructions, follow up and referral plans. medication usage, Demonstrated understanding of instructions, follow-up care, medications, Prescriptions given X 4. 13:14 Patient left the ED. jd3 Signatures: Dispatcher [employer] EDMS Yamel Pena, MONICA-C MANAGER INTERNAL-Dafne Pereira, [facility] Red Thomas RN RN jJulia Hartman RN RN ll1 Corrections: (The following items were deleted from the chart) 11:43 11:42 NS 0.9% 1000 ml IV at 1000 ml in right antecubital j j 12:52 11:42 NS 0.9% 1000 ml IV at 1000 ml in right forearm j j 12:52 11:43 Zofran (Ondansetron) 4 mg IVP in right forearm j j 12:52 11:44 morphine 4 mg IVP in right forearm j j
[2020-08-02] MEDS ORDERED: metroNIDAZOLE 500 MG TABLET ONE (13:02)
[2020-08-02] MEDS ORDERED: CIPROFLOXACIN HCL 500 MG TAB ONE (13:02)
[2020-08-02 16:40] VITALS: BP 140/96; TEMP 98.3; O2SAT 98
== END 2020-08-02 13:14 | disposition home or self-care (01) ==
LOC: ER 10:55
DX: K57.32 Diverticulitis of large intestine without perforation or abscess without bleeding (principal); I10 Essential (primary) hypertension; F17.210 Nicotine dependence, cigarettes, uncomplicated; Z88.5 Allergy status to narcotic agent
CPT/HCPCS: 96361; 85025; 80048; 36415; 80076; 83690; 74177; 96375; 96374; 99284; Q9967; J7030; J2405 ×2

== ENCOUNTER 2022-11-20 07:27 | Day surgery (SDC) | payer BC ==
[2022-11-19 10:39] LABS: Potassium 3.9 mEq/L (3.5-5.1)
--- NOTE | 2022-11-19 13:56 | EKG ---
Test Date: 2022-11-19 Test Time: 08:49:46 Mainframe Programmer Analyst: RODOLFO MEASUREMENT RESULTS: Intervals: Rate: 62 NM: 156 QRSD: 84 QT: 410 QTc: 416 [place]: P: 52 NM: 156 QRS: 45 T: 57 INTERPRETIVE STATEMENTS: Normal sinus rhythm Low voltage QRS Cannot rule out Anterior infarct, age undetermined Abnormal ECG Compared to ECG 12/28/2006 13:01:17 Low QRS voltage now present Myocardial infarct finding now present Electronically Signed On 11-19-22 13:54:41 CDT by Prince Deleon
[2022-11-20] MEDS: Ringers Lactate 1,000 ML IV ONE ×2 (08:00→08:39)
[2022-11-20] MEDS ORDERED: propofoL 200 MG/20 ML VIAL IV ONE ×2 (08:49→09:44)
[2022-11-20] MEDS ORDERED: LIDOCAINE 1% MPF 5 ML VIAL ONE ×2 (08:49)
[2022-11-20 09:47] VITALS: TEMP 97.3; O2SAT 100
[2022-11-20 09:51] VITALS: BP 138/84
[2022-11-20] MEDS ORDERED: ONDANSETRON 4 MG/2 ML VIAL ONE (09:52)
[2022-11-20] MEDS ORDERED: EPHEDRINE SULF 50 MG/ML VIAL ONE (10:15)
== END 2022-11-20 09:40 | disposition home or self-care (01) ==
LOC: OR 07:27
PROVIDERS: ATTEND Surgery
PROC: 0DBL8ZX Excision of Transverse Colon, Via Natural or Artificial Opening Endoscopic, Diagnostic (ICD-10-PCS; 2022-11-20)
PROC: 0DBN8ZX Excision of Sigmoid Colon, Via Natural or Artificial Opening Endoscopic, Diagnostic (ICD-10-PCS; 2022-11-20)
PROC: 0DBH8ZX Excision of Cecum, Via Natural or Artificial Opening Endoscopic, Diagnostic (ICD-10-PCS; principal; 2022-11-20 08:30)
DX: Z12.11 Encounter for screening for malignant neoplasm of colon (principal); K63.5 Polyp of colon; K57.30 Diverticulosis of large intestine without perforation or abscess without bleeding; K63.89 Other specified diseases of intestine; K64.8 Other hemorrhoids
CPT/HCPCS: 93005; 80048; 36415; 88305; 45380; J2704 ×2; J2001 ×2; J7120; J2405

== ENCOUNTER 2024-03-19 10:57 | Emergency (ER) | payer BC ==
--- OUTSIDE RECORDS SUMMARY | 2024-03-19 11:00 | XMS REPORT | Continuity of Care Document ---
Author Name Unknown Address [address] [place] [address] [facility] thconnect Address [address] [place] [address] Care Team Providers Care Operational Test Mechanic Name Role Phone LUIZA SHIELDS Primary Care Physician Unavailab myers [email or web address] Attending Clinician UnavailFELI Daniel Attending Clinician UnavailFeli Stevens DO Attending Clinician [phone] [email or web address] Admitting Clinician FELI Rico Admitting Clinician Viktor myers Payers Payer Name Policy Type Policy Number Effective Date Expirati on Date Source [facility] [id number] 2020 00:00:00 Allergies, Adverse Reactions, Alerts Allergy Name Allergy Type Status Severity Reaction(s) Onset Date Inactive Date Treating Clinician Comments Source MEPERIDI NE DRUG INGREDI Active Unknown-Cmnt 2020-06 00:00: 00 [facility] Meperidi ne Propensi ty to adverse reaction s Active Unknown - See comments 2020-06 00:00: 00 [facility] NO KNOWN ALLERGIE S Drug Class Active [facility] Social History Social Habit Start Date Stop Date Quantity Comments Source Exposure to SARS-CoV-2 (event) Not sure [facility] Sex Assigned At 1970 00:00:00 1970 00:00:00 [facility] Smoking Status Start Date Stop Date Source Unknown if ever smoked [facility] Vital Signs Vital Name Observation Time Observation Value Comments S nelly Systolic blood pressure 2021-06-01 18:19:00 149 mm[Hg] [place] [facility] Diastolic blood pressure 2021-06-01 18:19:00 94 mm[Hg] [place] [facility] Heart rate 2021-06-01 18:19:00 84 [facility] Body temperature 2021-06-01 18:19:00 37.17 [facility] Respiratory rate 2021-06-01 18:19:00 18 /min [facility] Body weight 2021-06-01 18:19:00 86.183 [facility] Oxygen saturation in Arterial blood by Pulse oximetry 2021-06-01 18:19:00 99 /min [facility] Procedures Procedure Date / Time Performed Performing Clinicia n Source ASSIGNMENT OF BENEFITS 2021-06-01 19:32:22 Docto r Unassigned, [place] [facility] XR HAND 3+ VW LEFT 2021-06-01 18:54:36 Anamika Steinberg [facility] NOTICE OF PRIVACY PRACTICES 2021-06-01 18:12:14 Doctor Unassigned, [place] [facility] Encounters Start Date/Time End Date/Time Encounter Type Admission Type Attending Clinicians Care Facility Care Department Encounter ID Source 2023-04-07 00:00:00 2023-04-07 00:00:00 Outpatient [email or web address] [facility] [id number] [facility] 2021-06-01 12:21:00 2021-06-01 14:23:00 Emergency X FELI STEINBERG [facility] ERT [id number] [facility] 2021-06-01 12:21:00 2021-06-01 14:23:00 Emergency Feli Steinberg [facility] [id number] [facility]
[2024-03-19] MEDS ORDERED: ONDANSETRON 4 MG/2 ML VIAL ONE (11:27)
[2024-03-19] MEDS ORDERED: NA CHLORIDE 0.9% 1,000 ML ONE (11:28)
[2024-03-19] MEDS ORDERED: MORPHINE 4 MG/ML SYR ONE (11:28)
[2024-03-19 11:34] LABS: Absolute Basophils 0.1 K/uL (0-0.5); Absolute Eosinophils 0.1 K/uL (0-0.5); Absolute Lymphocytes (CBC) 1.8 K/uL (0.7-4.9); Absolute Monocytes 1.2 K/uL (0.1-1.3); Absolute Neutrophil 8.1 K/uL (1.8-8.0); Basophils % 0.6 % (0-1.3); Eosinophils % 0.9 % (0-4.4); Hematocrit 44.7 % (36.0-45.0); Hemoglobin 14.6 g/dL (12.0-15.0); Lymphocytes % 15.7 % (15.3-44.8); MCH 30.9 pg (27.0-35.0); MCHC 32.7 g/dL (32.0-36.0); MCV 94.5 fL (80-100); MPV 7.9 fL (7.6-11.3); Monocytes % 10.7 % (3.3-12.3); Neutrophils % 72.1 % (41.7-73.7); Platelets 264 thou/uL (152-406); RBC Red Blood Cell Count 4.73 M/uL (3.86-4.86); Red Cell Distribution Width 14.1 % (12.1-15.2)
[2024-03-19 11:50] LABS: Specific Gravity 1.022 (1.005-1.030); Sqamous Epithelial <5 /HPF (None Seen); Urine Bacteria <20 /HPF (<20); Urine Bilirubin NEGATIVE (Negative); Urine Blood Negative (Negative); Urine Clarity Turbid (Clear); Urine Color Yellow (Yellow); Urine Culture Reflex Order NOT NEEDED; Urine Glucose NEGATIVE (Negative); Urine Ketones TRACE (Negative); Urine Microscopic Reflex YN ORDER UMIC; Urine Mucus Slight /HPF (None Seen); Urine Nitrite NEGATIVE (Negative); Urine Protein TRACE (Negative); Urine RBC <5 /HPF (None Seen); Urine Urobilinogen Normal (Normal); Urine WBC <5 /HPF (<5); Urine pH 6.5 (5.0-7.0)
[2024-03-19 11:50] LABS: Albumin 3.5 g/dL (3.4-5.0); Albumin/Globulin Ratio 0.8 (1.1-1.8); Anion Gap 7.7 mEq/L (5.0-15.0); Bilirubin Total 1.2 mg/dL (0.2-1.0); Globulin 4.4 g/dL (2.3-3.5); Potassium 3.7 mEq/L (3.5-5.1); Protein, Total 7.9 g/dL (6.4-8.2)
--- NOTE | 2024-03-19 12:49 | RAD REPORT ---
EXAMINATION: CT ABDOMEN AND PELVIS WITH CONTRAST CLINICAL INDICATION: Abdominal pain TECHNIQUE: CT abdomen and pelvis was performed, after the administration of 100 cc Isovue-300.. Sagit helen and coronal reconstructions were obtained. One or more of the following dose reduction techniques were used: Automated exposure control, adjustment of the mA and/or kV according to patien t size, and/or iterative reconstruction. Unless otherwise specified, incidental findings do not require dedicated imaging follow-up. [id number]. Oral contrast was not given which limits evaluation of b owel and appendix. COMPARISON: 2020 FINDINGS: The liver, spleen, pancreas, and adrenals appear unremarkable. Tiny nonobstructing renal calculi Marked stranding adjacent to the sigmoid colon small amount of ill-defined fluid. Diverticula. No bk e air. No abscess. : IMPRESSION: Marked sigmoid diverticulitis
[2024-03-19] MEDS ORDERED: metroNIDAZOLE 500 MG TABLET ONE (13:22)
[2024-03-19] MEDS ORDERED: HYDROCODONE/APAP 10/325 TAB ONE (13:23)
[2024-03-19] MEDS ORDERED: CIPROFLOXACIN HCL 500 MG TAB ONE (13:23)
--- NOTE | 2024-03-19 13:26 | ER ---
Nurse's Notes [facility] Name: Lorie Bonner Age: 53 yrs Sex: Female : 1970 Arrival Date: 03/19/2024 Time: 10:57 Bed 6 Private MD: Diagnosis: Diverticulitis of intestine, part unspecified, without perforation or abscess without bleeding Presentation: 03/19 11:08 Chief complaint: Patient states: LLQ abdominal pain for 2 days. Coronavirus screen: ll1 Client denies travel out of the [place] in the last 14 days. At this time, the client does not indicate any symptoms associated with coronavirus-19. Ebola Screen: Patient denies travel to an Ebola-affected area in the 21 days before illness onset. Initial Sepsis Screen: Does the patient meet any 2 criteria? No. Patient's initial sepsis screen is negative. Does the patient have a suspected source of infection? No. Patient's initial sepsis screen is negative. Risk Assessment: Do you want to hurt yourself or someone else? Patient reports no desire to harm self or others. Onset of symptoms was March 18, 2024. 11:08 Method Of Arrival: Ambulatory ll1 11:08 Acuity: JARRETT 3 ll1 Triage Assessment: 11:12 General: Appears uncomfortable, Behavior is calm, cooperative, appropriate for age. ll1 Pain: Complains of pain in L abdomen Quality of pain is described as aching. GI: Reports lower abdominal pain. 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 - Infectious Disease History:: Denies. - Social history:: Smoking status: Reported history of juuling and/or vaping. Patient denies any tobacco usage or history of. Screenin:10 [facility] ED Fall Risk Assessment (Adult) History of falling in the last 3 months, mb9 including since admission No falls in past 3 months (0 pts) Confusion or Disorientation No (0 pts) Intoxicated or Sedated No (0 pts) Impaired Gait No (0 pts) Mobility Assist Device Used No (0 pt) Altered Elimination No (0 pt) Score/Fall Risk Level 0 - 2 = Low Risk Oriented to surroundings, Maintained a safe environment, Educated pt \T\ family on fall prevention, incl call for assistance when getting out of bed. Abuse screen: Denies threats or abuse. Nutritional screening: No deficits noted. Tuberculosis screening: No symptoms or risk factors identified. Assessment: 11:49 General: Appears in no apparent distress. Pain: Complains of pain in abdomen Pain mb9 radiates to LLQ Pain currently is 7 out of 10 on a pain scale. Quality of pain is described as throbbing. Neuro: Bird Agitation-Sedation Scale (RASS): 0 - Alert and Calm Level of Consciousness is awake, alert, obeys commands, Oriented to person, place, time, situation, Appropriate for age. Cardiovascular: Patient's skin is warm and dry. Respiratory: Airway is patent Respiratory effort is even, unlabored, Respiratory pattern is regular, symmetrical. GI: Abdomen is flat, non-distended, Bowel sounds present X 4 quads. Abd is soft Abdomen is tender to palpation in left lower quadrant. : No signs and/or symptoms were reported regarding the genitourinary system. EENT: No signs and/or symptoms were reported regarding the EENT system. Derm: Skin is pink, warm \T\ dry. Musculoskeletal: Range of motion: intact in all extremities. 13:00 Reassessment: No changes from previously documented assessment. Patient and/or family mb9 updated on plan of care and expected duration. Pain level reassessed. Patient is alert, oriented x 3, equal unlabored respirations, skin warm/dry/pink. 13:27 Reassessment: D/C pending medication administration wait time. mb9 Vital Signs: 11:08 BP 157 / 98; Pulse 84; Resp 16; Temp 99.2; Pulse Ox 97% on R/A; Weight 97.52 kg; Pain ll1 6/10; 13:25 BP 145 / 90; Pulse 74; Resp 16; Pulse Ox 100% on R/A; mb9 13:52 BP 149 / 89; Pulse 77; Resp 17; Temp 98.9; Pulse Ox 99% on R/A; ap3 11:08 Pain Scale: Adult ll1 ED Course: 10:59 Patient arrived in ED. ra3 11:00 [facility]-C [facility]. kb 11:00 Tulio Osei MD is Attending Physician. kb 11:09 Triage completed. ll1 11:10 Dafne Katz, VALERIE is Primary Nurse. mb9 11:10 Arm band placed on Patient placed in an exam room, on a stretcher. ll1 11:10 Placed in gown. Bed in low position. Call light in reach. Side rails up X 1. Provided mb9 Education on: press call light if needing anything. Client placed on continuous cardiac and pulse oximetry monitoring. NIBP monitoring applied. 11:20 Inserted saline lock: 20 gauge in right antecubital area, using aseptic technique. rs6 Blood collected. Flushed with 10 mL NS. 11:50 No provider procedures requiring assistance completed. mb9 12:[address] via wheelchair. mb9 12:19 CT Abd/Pelvis - IV Contrast Only In Process Unspecified. EDMS 13:53 IV discontinued, intact, bleeding controlled, No redness/swelling at site. Pressure ap3 dressing applied. Administered Medications: 11:40 Drug: Ondansetron IVP 4 mg IVP once; over 2 minutes Route: IVP; Site: right antecubital;mb9 12:25 Follow up: Response: No adverse reaction mb9 11:46 Drug: NS 0.9% IV 1000 ml IV at 1 bolus Per protocol; to be given as a bolus over 60 mb9 minutes Route: IV; Rate: 1 bolus; Site: right antecubital; 12:53 Follow up: Response: No adverse reaction; IV Status: Completed infusion mb9 11:47 Drug: morphine IVP or IV 4 mg IVP once over 4 mins Route: IVP; Infused Over: 4 mins; mb9 Site: right antecubital; 12:25 Follow up: Response: No adverse reaction mb9 13:24 Drug: metroNIDAZOLE PO 500 mg PO once Route: PO; mb9 13:53 Follow up: Response: No adverse reaction ap3 13:24 Drug: [place] PO 10 mg-325 mg 1 tabs PO once Route: PO; mb9 13:53 Follow up: Response: No adverse reaction; Pain is decreased ap3 13:25 Drug: Ciprofloxacin PO 500 mg PO once Route: PO; mb9 13:54 Follow up: Response: No adverse reaction ap3 Medication: 11:11 VIS not applicable for this client. mb9 Outcome: 13:26 Discharge ordered by MD. castillo 13:53 Discharged to home ambulatory, with family, ap3 13:53 Condition: good 13:53 Discharge instructions given to patient, family, Instructed on discharge instructions, follow up and referral plans. medication usage, Demonstrated understanding of instructions, follow-up care, medications, Prescriptions given X 3, 14:01 Patient left the ED. ap3 Signatures: Dispatcher [employer] EDNY Yamel Pena, MONICA-Darci ANDERSON-Justine Doss RN RN ap3 Julia Blackmon RN RN ll1 Sterling, Dafne Bryson RN RN mb9 Opal Cervantes Ryan rs6
--- NOTE | 2024-03-19 13:26 | EDPHYS ---
Physician Documentation [facility] Name: Lorie Bonner Age: 53 yrs Sex: Female : 1970 Arrival Date: 03/19/2024 Time: 10:57 Bed 6 Private MD: ED Physician Tulio Osei HPI: 03/19 13:25 This 53 yrs old Female presents to ER via Ambulatory with complaints of Abdominal Pain. kb 13:25 Pt is a 53 year old female who presents for LLQ pain that started yesterday. States it kb feels exactly the same as previous episodes of diverticulitis. Denies n/v/d, fever. 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 - Infectious Disease History:: Denies. - Social history:: Smoking status: Reported history of juuling and/or vaping. Patient denies any tobacco usage or history of. ROS: 13:23 Constitutional: As per HPI kb Exam: 13:23 Constitutional: This is a well developed, well nourished patient who is awake, alert, kb and in no acute distress. Head/Face: Normocephalic, atraumatic. ENT: Moist Mucous membranes Cardiovascular: Regular rate Respiratory: Respirations even and unlabored. No increased work of breathing. Talking in full sentences Skin: Warm, dry with normal turgor. Normal color. MS/ Extremity: Pulses equal, no cyanosis. Neurovascular intact. Full, normal range of motion. Neuro: Awake and alert, GCS 15, oriented to person, place, time, and situation. Moves all extremities. Normal gait. 13:23 Abdomen/GI: Inspection: abdomen appears normal, Bowel sounds: normal, Palpation: soft, in all quadrants, mild abdominal tenderness, in the left upper quadrant, moderate abdominal tenderness, in the left lower quadrant, Vital Signs: 11:08 BP 157 / 98; Pulse 84; Resp 16; Temp 99.2; Pulse Ox 97% on R/A; Weight 97.52 kg; Pain ll1 6/10; 13:25 BP 145 / 90; Pulse 74; Resp 16; Pulse Ox 100% on R/A; mb9 13:52 BP 149 / 89; Pulse 77; Resp 17; Temp 98.9; Pulse Ox 99% on R/A; ap3 11:08 Pain Scale: Adult ll1 MDM: 11:00 Patient medically screened. kb 13:23 Differential diagnosis: non-specific abd pain, diverticulitis , colitis. Data reviewed: kb vital signs, nurses notes. Consideration of Admission/Observation Escalation of care including admission/observation considered. admission considered, but pt prefers to go home and take oral antibiotics first. Pt educated on strict return precautions. Verbal understanding received from pt and . Historians other than the Patient: Spouse/Significant Other: . Counseling: I had a detailed discussion with the patient and/or guardian regarding the historical points, exam findings, and any diagnostic results supporting the discharge/admit diagnosis, lab results, radiology results, the need for outpatient follow up, a family practitioner, to return to the emergency department if symptoms worsen or persist or if there are any questions or concerns that arise at home. 03/19 11:11 Order name: CBC with Diff; Complete Time: 11:39 kb 03/19 11:11 Order name: CMP; Complete Time: 11:52 kb 03/19 11:11 Order name: Lipase; Complete Time: 11:52 kb 03/19 11:11 Order name: Urinalysis w/ reflexes; Complete Time: 11:52 kb 03/19 11:11 Order name: CT Abd/Pelvis - IV Contrast Only; Complete Time: 12:51 kb 03/19 11:11 Order name: IV Saline Lock; Complete Time: 11:46 kb 03/19 11:11 Order name: Labs collected and sent; Complete Time: 11:46 kb Administered Medications: 11:40 Drug: Ondansetron IVP 4 mg IVP once; over 2 minutes Route: IVP; Site: right antecubital;mb9 12:25 Follow up: Response: No adverse reaction mb9 11:46 Drug: NS 0.9% IV 1000 ml IV at 1 bolus Per protocol; to be given as a bolus over 60 mb9 minutes Route: IV; Rate: 1 bolus; Site: right antecubital; 12:53 Follow up: Response: No adverse reaction; IV Status: Completed infusion mb9 11:47 Drug: morphine IVP or IV 4 mg IVP once over 4 mins Route: IVP; Infused Over: 4 mins; mb9 Site: right antecubital; 12:25 Follow up: Response: No adverse reaction mb9 13:24 Drug: metroNIDAZOLE PO 500 mg PO once Route: PO; mb9 13:53 Follow up: Response: No adverse reaction ap3 13:24 Drug: [place] PO 10 mg-325 mg 1 tabs PO once Route: PO; mb9 13:53 Follow up: Response: No adverse reaction; Pain is decreased ap3 13:25 Drug: Ciprofloxacin PO 500 mg PO once Route: PO; mb9 13:54 Follow up: Response: No adverse reaction ap3 Disposition Summary: 03/19/24 13:26 Discharge Ordered Notes: Location: Home kb Condition: Stable kb Diagnosis - Diverticulitis of intestine, part unspecified, without perforation or abscess kb without bleeding Followup: kb - With: Emergency Department - When: As needed - Reason: Worsening of condition Followup: kb - With: Private Physician - When: 2 - 3 days - Reason: Recheck today's complaints, Continuance of care, Re-evaluation by your physician Discharge Instructions: - Discharge Summary Sheet kb - Diverticulitis, [id number] kb Forms: - Medication Reconciliation Form kb - Antibiotic Education kb - Prescription Opioid Use kb - Patient Portal Instructions kb - Leadership Thank You Letter kb Prescriptions: - Flagyl 500 mg Oral Tablet - take 1 tablet ORAL route every 8 hours for 10 days; 30 tablet; Refills: 0, kb Product Selection Permitted - Cipro 500 mg Oral tablet - take 1 tablet ORAL route every 12 hours for 10 days; 20 tablet; Refills: 0, kb Product Selection Permitted - Diclofenac Sodium 75 mg Oral tablet, delayed release (enteric coated) - take 1 tablet ORAL route 2 times per day As needed; 30 tablet; Refills: 0, kb Product Selection Permitted Addendum: 03/21/2024 17:54 I was immediately available for consultation during this patient's visit. I did not e c2 personally see the patient or discuss the patient with the DANIEL. . Signatures: Dispatcher [employer] Yamel Moore FNP-C FNP-Julia Leung RN RN ll1 Dafne Katz RN RN mb9 Tulio Osei MD MD ec2 Prokisch, Justine RN ap3
[2024-03-19 14:26] VITALS: TEMP 98.9
[2024-03-19 14:28] VITALS: BP 145/90; O2SAT 100
== END 2024-03-19 14:01 | disposition home or self-care (01) ==
LOC: ER 10:57
DX: K57.32 Diverticulitis of large intestine without perforation or abscess without bleeding (principal); I10 Essential (primary) hypertension
CPT/HCPCS: 85025; 81001; 36415; 83690; 80053; 74177; Q9967; J2405; J7030